=== PATIENT | female | born 1970 | race Caucasian/White ===

== ENCOUNTER 2020-11-24 12:53 | Emergency (ER) | payer OTHER, MEDICARE, SELFPAY | END 2020-11-24 15:52 | disposition left against medical advice (07) | LOC: HO.ED 14:17 | PROVIDERS: Emergency Provider Emergency Medicine | DX: R06.02 Shortness of breath (principal) ==

== ENCOUNTER 2022-12-09 09:33 | Outpatient (AMB) | payer OTHER, SELFPAY ==
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
[2022-12-09 09:55] VITALS: BP 142/96; PULSE 89; RESP 18; O2SAT 97; BMI 26.2
== END 2022-12-09 10:07 | disposition home or self-care (01) ==
PROVIDERS: Visit Provider Registered Nurse Emergency
DX: M47.816 Spondylosis without myelopathy or radiculopathy, lumbar region (principal); M54.50 Low back pain, unspecified; M53.3 Sacrococcygeal disorders, not elsewhere classified
CPT/HCPCS: 99204

== ENCOUNTER → 2022-12-09 09:33 | Outpatient (BNVA) | payer OTHER, SELFPAY | PROVIDERS: Visit Provider Registered Nurse Emergency | DX: M53.3 Sacrococcygeal disorders, not elsewhere classified (principal); M47.816 Spondylosis without myelopathy or radiculopathy, lumbar region; M54.50 Low back pain, unspecified | CPT/HCPCS: 99202 ==

== ENCOUNTER 2023-07-18 00:10 | Emergency (ER) | payer OTHER, SELFPAY ==
--- NOTE | ~2023-07-18 | XR_ITS ---
EXAMINATION: XR ANKLE, LEFT CLINICAL INFORMATION: Pain. COMPARISON: None available. TECHNIQUE: AP, lateral, and mortise views of the left ankle. FINDINGS: No fracture. Alignment is anatomic. No erosions. Joint spaces are maintained. Soft tissues are normal. XR/XR ankle LT min 3V IMPRESSION: No significant abnormality identified.
--- NOTE | ~2023-07-18 | XR_ITS ---
EXAMINATION: XR KNEE, LEFT CLINICAL INFORMATION: Pain. COMPARISON: None available. TECHNIQUE: Four views of the left knee. FINDINGS: No fracture or joint effusion. Alignment is anatomic. Joint spaces are maintained. No abnormal soft tissue calcification. XR/XR knee LT 4V IMPRESSION: No significant abnormality identified.
[2023-07-18 00:22] VITALS: BP 129/87; PULSE 94; RESP 18; TEMP 37.4; O2SAT 97; BMI 25.2
[2023-07-18 01:58] VITALS: BP 116/82; PULSE 97; RESP 16; TEMP 37; O2SAT 97
[2023-07-18 02:24] LABS: Appearance Urine Clear; Color Urine Yellow; Glucose Urine UA Negative (Negative); Leukocyte Esterase Urine Negative (Negative); Nitrite Urine Negative (Negative); PH 5.5 (5.0-9.0); Urine Blood Negative (Negative); Urine Ketones Negative (Negative); Urine Protein Negative (Neg-Trace)
[2023-07-18 02:29] LABS: Bacteria Urine None Seen (None Seen); Hyaline Casts Urine 0-2 /LPF (0-2); RBC Urine 0-2 /HPF (0-2); Squamous Epithelial Cell Urine 0-2 /HPF (0-2); WBC Urine 0-5 /HPF (0-5)
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
[2023-07-18 03:57] VITALS: BP 106/57; PULSE 86; RESP 14; TEMP 36.9; O2SAT 97
[2023-07-18] MEDS: cephALEXin 500 MG CAPSULE PO (04:05)
[2023-07-18] MEDS: Doxycycline Monohydrate 100 MG CAPSULE PO (04:05)
[2023-07-18 04:11] VITALS: BP 106/57; PULSE 86; RESP 14; TEMP 36.9; O2SAT 97
== END 2023-07-18 04:12 | disposition home or self-care (01) ==
PROVIDERS: Emergency Provider Student in an Organized Health Care Education/Training Program; PCP Nurse Practitioner Family
DX: L08.9 Local infection of the skin and subcutaneous tissue, unspecified (principal); M25.562 Pain in left knee; M25.572 Pain in left ankle and joints of left foot; Z79.899 Other long term (current) drug therapy
CPT/HCPCS: 73564; 73610; 81001; 99283; 99284

== ENCOUNTER 2024-02-02 10:19 | Outpatient (AMB) | payer OTHER, SELFPAY ==
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
[2024-02-02 12:26] VITALS: BP 150/100; PULSE 80; TEMP 36.8; O2SAT 98; BMI 23.7
== END 2024-02-02 13:06 | disposition home or self-care (01) ==
PROVIDERS: PCP Nurse Practitioner Family; Visit Provider Nurse Practitioner Family
DX: S69.91XA Unspecified injury of right wrist, hand and finger(s), initial encounter (principal); S61.431A Puncture wound without foreign body of right hand, initial encounter; W46.0XXA Contact with hypodermic needle, initial encounter

== ENCOUNTER → 2024-02-02 10:19 | Outpatient (BNVA) | payer OTHER, SELFPAY | PROVIDERS: PCP Nurse Practitioner Family; Visit Provider Nurse Practitioner Family | DX: S69.91XD Unspecified injury of right wrist, hand and finger(s), subsequent encounter (principal); W46.0XXD Contact with hypodermic needle, subsequent encounter | CPT/HCPCS: 99212 ==

== ENCOUNTER 2024-02-02 13:18 | Inpatient (IN) | payer OTHER, SELFPAY ==
--- NOTE | ~2024-02-02 | XR_ITS ---
EXAMINATION: XR HAND/WRIST, RIGHT CLINICAL INFORMATION: pain, injury ; fall. COMPARISON: None available. TECHNIQUE: PA, lateral, oblique, and scaphoid views of the right hand and wrist. FINDINGS: The bones and soft tissues are normal. No fracture. Alignment is anatomic. Joint spaces are maintained. No erosions or soft tissue calcifications. XR/XR hand wrist RT IMPRESSION: Normal radiographs of the hand and wrist. Electronically signed by: Sid Chapman MD 02/02/2024 02:26 PM [facility]
--- NOTE | 2024-02-02 13:32 | ED_ITS ---
HPI - General Adult General Chief complaint: General Medical Stated complaint: Needle stick, swelling R hand Time Seen by Provider: 02/02/24 17:46 History of Present Illness ED Provider: Jose ADAMES narrative: The patient is a 53-year-old woman who says that yesterday she was helping a friend who was an IV drug user cleaned himself up. She did not realize there was an uncapped needle on him. She was accidentally stuck in her right palm by the needle. Since then she has developed redness and swelling to the hand and has also developed redness streaking up her right arm to her armpit. She does not know if she has had a fever. Related Data Home Medications ?Medication ?Instructions ?Recorded ?Confirmed albuterol sulfate 90 mcg/actuation inhalation 12/07/22 aerosol inhaler duloxetine 60 mg capsule,delayed mg PO 12/07/22 release fluticasone propionate 220 2 puff inhalation BID 12/07/22 mcg/actuation HFA aerosol inhaler (Flovent HFA) fluticasone propionate 50 spray intranasal 12/07/22 mcg/actuation nasal spray,suspension gabapentin 300 mg capsule mg PO 12/07/22 loratadine 10 mg tablet 10 mg PO DAILY 12/07/22 lorazepam 2 mg tablet mg PO BID 12/07/22 methylphenidate HCl 10 mg tablet 10 mg PO BID 12/07/22 methylphenidate HCl 20 mg tablet 20 mg PO TID 12/07/22 montelukast 10 mg tablet 10 mg PO DAILY 12/07/22 omeprazole 20 mg capsule,delayed 20 mg PO BID 12/07/22 release risperidone 1 mg tablet 1 mg PO BEDTIME 12/07/22 trazodone 50 mg tablet 50 - 150 mg PO BEDTIME PRN 12/07/22 Previous Rx's ?Medication ?Instructions ?Recorded lidocaine 5 % topical patch 1 patch topical DAILY #30 ea 12/09/22 multivitamin 1 tab PO DAILY #30 tabs 12/09/22 doxycycline hyclate 100 mg capsule 100 mg PO BID 7 days #14 caps 07/18/23 Allergies Allergy/AdvReac Type Severity Reaction Status Date / Time hydromorphone [From DILAUDID] Allergy Severe UNKNOWN Verified 02/02/24 13:38 Sulfa (Sulfonamide Allergy Severe ANAPHYLAXIS Verified 02/02/24 13:38 Antibiotics) [SULFA (SULFONAMIDE ANTIBIOTICS)] gluten Allergy Unknown Verified 02/02/24 13:38 inverted sugar Allergy Vomiting Verified 02/02/24 13:38 lactose Allergy Unknown Verified 02/02/24 13:38 sulfa Allergy Unknown anaphylaxis Uncoded 02/02/24 13:38 Review of Systems 2 Review of Systems: Yes all other systems are reviewed and are negative [facility] Past Medical History Medical History Chronic constipation Urinary incontinence Raynaud disease PTSD (post-traumatic stress disorder) Primary hemochromatosis Polypharmacy Migraine Major depression Lactose intolerance Insomnia Gastro-esophageal reflux Fibromyalgia Elevated blood pressure reading Chronic pain syndrome Chronic diarrhea Cerebellar degeneration Asthma Anxiety disorder Anemia Allergic rhinitis Surgical History S/P gastric bypass Social History Social History Smoked in Last 30 Days: Yes Use of substances other than those prescribed or required for medical reasons: No Advance Directives: No Advance Directives Information Provided: No Do you have a plan to hurt others: No Plan Patient : No Physical Exam ED Vital Signs: Vital Signs - 24 hr 02/02/24 13:36 Temperature 98.4 F Pulse Rate 79 Respiratory Rate 19 Blood Pressure 136/64 Pulse Oximetry 98 Oxygen Delivery Method Room Air BMI result Body Mass Index 23.6 Const Other: The patient is awake, alert, pleasant, cooperative. The patient does not appear acutely toxic. [facility] Head: Yes normal to inspection Face and sinus: Yes normal facial exam Mouth: Normal oral and palatal mucosa present and moist mucous membranes Eyes General: appearance normal, both eyes and all related structures Neck Neck: Yes full ROM Resp Effort & Inspection: normal respiratory effort Auscultation: clear to auscultation bilaterally Cardio Rate: regular rate Rhythm: regular rhythm Heart sounds: S1 normal heart sound present and S2 normal heart sound present GI Other: Abdomen is soft and nontender Skin Other: The patient has swelling and erythema to the right hand mostly at the palm. The hand is swollen. There is lymphangitis on the volar aspect of the right forearm that extends up to the upper arm and as far as the axilla. Neuro Other: The patient is awake with a normal mental status. Cranial nerves are intact. She moves her extremities normally and appropriately. She is neurologically intact. Extrem Other: The patient has swelling and erythema to the right hand with lymphangitis that extends up the volar forearm and the medial aspect of the upper arm to the axilla. She is able to move all the joints of the upper extremity without difficulty. No evidence of any focal swelling or fluctuance or acute joint or tendon problem. Course Course Course Narrative: RME performed by Mitra Lee PA-C. Patient is a 53 year old assigned female at presenting to the emergency department with right hand and wrist pain. Patient states that she slipped and fell on the right hand / wrist and got stuck by a dirty needle on the right palm. Patient states that she is helping someone with IVDU and got stuck on the right palm. Detailed physical exam and review of systems are deferred to the emergency room clinician. Labs and imaging ordered. Patient placed back in the waiting room pending room availability and results. Medications Administered Generic Name Dose Route Start Last Admin Trade Name Freq PRN Reason Stop Dose Admin Vancomycin HCl 1,500 mg/ 500 mls @ 333.333 mls/hr 02/02/24 17:54 02/02/24 18:58 Sodium Chloride IV 02/02/24 19:23 333.33 mls/hr ONCE ONE Administration Discontinued Medications Generic Name Dose Route Start Last Admin Trade Name Freq PRN Reason Stop Dose Admin Lorazepam 1 mg 02/02/24 18:01 02/02/24 18:58 Lorazepam 1 Mg Tablet PO 02/02/24 18:02 1 mg ONCE ONE Administration Medical Decision Making Medical Decision Making [facility] Narrative: The patient is a 53-year-old female who has what seems to be a right hand cellulitis with associated lymphangitis extending from the palm to the right axilla. [place] [address] and also an elevated CRP of 19. Given her cellulitis and lymphangitis and significantly elevated inflammatory markers I think hospitalization would be reasonable. Blood cultures were drawn. Her lactate was normal. She is started on vancomycin IV. She will be admitted to the hospitalist service. Lab Data 02/02/24 15:02 02/02/24 15:02 Labs: Lab Results 02/02/24 02/02/24 Range/Units 15:02 18:26 WBC 16.3 H (4.8-10.8) X10*3/uL RBC 4.29 (4.20-5.50) X10*6/uL Hgb 13.1 (12.0-16.0) g/dl Hct 39.4 (37.0-47.0) % MCV 91.8 (80.0-98.0) fL MCH 30.5 (27.0-33.0) pg MCHC 33.2 (31.0-35.0) g/dl RDW 12.8 (11.0-16.0) % Plt Count 302 (160-400) X10*3/uL MPV 10.9 (9.4-12.3) fL Immature Gran % (Auto) 0.5 H (0.0-0.4) % Neut % (Auto) 78.5 H (45-73) % Lymph % (Auto) 14.0 L (20-40) % Aiken % (Auto) 6.2 (2-11) % Eos % (Auto) 0.4 (0-4) % Baso % (Auto) 0.4 (0-2) % Lymph # (Auto) 2.3 (1.2-4.9) X10*3/uL Aiken # (Auto) 1.0 (0.1-1.2) X10*3/uL Eos # (Auto) 0.1 (0.0-0.4) X10*3/uL Baso # (Auto) 0.1 (0.0-0.2) X10*3/uL Abs Immat Gran (auto) 0.08 H (0.00-0.03) X10*3/uL Absolute Neuts (auto) 12.8 H (2.0-8.3) x10*3/uL Absolute Nucleated RBC 0.000 (0.0-0.012) X10*3/uL Nucleated RBC % (auto) 0.0 (0.0-0.2) /100WBC ESR 17 (0-20) MM/HR Sodium 140 (135-145) mmol/L Potassium 3.3 (3.3-5.1) mmol/L Chloride 100 (96-108) mmol/L Carbon Dioxide 27 (22-29) mmol/L Anion Gap 16 (12-20) BUN 11 (9-16) mg/dL Creatinine 0.61 (0.5-1.4) mg/dL Estim Creat Clear Calc 85.3 Estimated GFR > 60 Random Glucose 102 (60-115) mg/dL Lactic Acid 0.9 (0.5-2.0) mmol/L Calcium 9.3 (8.4-10.2) mg/dL Magnesium 2.1 (1.6-2.6) mg/dL Total Bilirubin 0.3 (0.0-1.0) mg/dL AST 23 (5-31) U/L ALT 22 (0-31) U/L Alkaline Phosphatase 70 (39-117) U/L C-Reactive Protein 19.05 H (< or = 0.50) mg/dL Total Protein 7.2 (6.5-8.0) g/dL Albumin 4.2 (3.5-5.0) g/dL Discharge Plan Discharge Clinical Impression: Cellulitis of right hand Patient Disposition: Admitted As Inpatient Interventions: Admission Worksheet (ED) Last Done: 02/02/24 18:55
[2024-02-02 13:36] VITALS: BP 136/64; PULSE 79; RESP 19; TEMP 36.9; O2SAT 98; BMI 23.6
[2024-02-02 15:16] LABS: MANUAL DIFF FLAG NO
[2024-02-02 15:17] LABS: Basophils Absolute Auto 0.1 X10*3/uL (0.0-0.2); Basophils Percent Auto 0.4 % (0-2); Eosinophils Absolute Auto 0.1 X10*3/uL (0.0-0.4); Eosinophils Percent Auto 0.4 % (0-4); Hematocrit 39.4 % (37.0-47.0); Hemoglobin 13.1 g/dl (12.0-16.0); Imm Gran Abs Auto 0.08 X10*3/uL (0.00-0.03); Imm Gran Pct Auto 0.5 % (0.0-0.4); Lymphocytes Absolute Auto 2.3 X10*3/uL (1.2-4.9); Mean Corpuscular HGB Conc 33.2 g/dl (31.0-35.0); Mean Corpuscular Hemoglobin 30.5 pg (27.0-33.0); Mean Corpuscular Volume 91.8 fL (80.0-98.0); Mean Platelet Volume 10.9 fL (9.4-12.3); Monocytes Percent Auto 6.2 % (2-11); Neutrophils Absolute Auto 12.8 x10*3/uL (2.0-8.3); Neutrophils Percent Auto 78.5 % (45-73); Platelet Count 302 X10*3/uL (160-400); Red Blood Count 4.29 X10*6/uL (4.20-5.50); Red Cell Distribution Width 12.8 % (11.0-16.0); White Blood Count 16.3 X10*3/uL (4.8-10.8)
[2024-02-02 15:54] LABS: Erythrocyte Sedimentation Rate 17 MM/HR (0-20)
[2024-02-02 16:12] LABS: Alanine Aminotransferase 22 U/L (0-31); Albumin Level 4.2 g/dL (3.5-5.0); Alkaline Phosphatase 70 U/L (39-117); Anion Gap 16 (12-20); Aspartate Amino Transferase 23 U/L (5-31); Bilirubin Total 0.3 mg/dL (0.0-1.0); Blood Urea Nitrogen 11 mg/dL (9-16); C Reactive Protein 19.05 mg/dL (< or = 0.50); Calcium 9.3 mg/dL (8.4-10.2); Carbon Dioxide 27 mmol/L (22-29); Chloride 100 mmol/L (96-108); Creatinine Clr Calc Pharmacy 85.3; Estimated Glomerular Filt Rate > 60; Glucose Random 102 mg/dL (60-115); Magnesium 2.1 mg/dL (1.6-2.6); Potassium 3.3 mmol/L (3.3-5.1); Sodium 140 mmol/L (135-145); Total Protein 7.2 g/dL (6.5-8.0)
--- NOTE | 2024-02-02 18:46 | P.HPHOSP_ITS ---
History of Present Illness Date of Service: 02/02/24 Attending physician on admission: Dave Hernandez Chief Complaint: arm /maciel cellulitis HPI: 53 y/o F pmhx hx of asthma (mild intermittent) , anxiety, gastric bypass came with needle stick yetserday .her friend is kelly, She was accidentally stuck in her right palm by the needle. Since then she has developed redness and swelling to the hand and has also developed redness streaking up her right arm to her armpit. She does not know if she has had a fever. she also report hx of mrsa bacteremia requiring iv vanco was in [facility]. Denies any new complaint of chest pain or shortness of breath or abdominal pain or fever or chills or nausea or vomiting or cough Denies any weakness or numbness. lab ,imaging reviewed: wbc 16.3 cmp fine crp 19.05 esr:17 lactic acid 0.9 blood culture pending XR/XR hand wrist RT IMPRESSION: Normal radiographs of the hand and wrist. in Ed -received iv vanco. requested admission Review of Systems 2 Review of Systems: Yes all other systems are reviewed and are negative [facility] Medical History Chronic constipation Urinary incontinence Raynaud disease PTSD (post-traumatic stress disorder) Primary hemochromatosis Polypharmacy Migraine Major depression Lactose intolerance Insomnia Gastro-esophageal reflux Fibromyalgia Elevated blood pressure reading Chronic pain syndrome Chronic diarrhea Cerebellar degeneration Asthma Anxiety disorder Anemia Allergic rhinitis Surgical History S/P gastric bypass Meds Allergies Allergy/AdvReac Type Severity Reaction Status Date / Time hydromorphone [From DILAUDID] Allergy Severe UNKNOWN Verified 02/02/24 13:38 Sulfa (Sulfonamide Allergy Severe ANAPHYLAXIS Verified 02/02/24 13:38 Antibiotics) [SULFA (SULFONAMIDE ANTIBIOTICS)] gluten Allergy Unknown Verified 02/02/24 13:38 inverted sugar Allergy Vomiting Verified 02/02/24 13:38 lactose Allergy Unknown Verified 02/02/24 13:38 sulfa Allergy Unknown anaphylaxis Uncoded 02/02/24 13:38 Active Medications: Current Medications Acetaminophen (Acetaminophen 325 Mg Tablet) 650 mg PO Q6H PRN PRN Reason: Pain, Mild 1-3,fever,headache Calcium Carbonate (Calcium Carbonate 750 Mg Tab.Chew) 750 mg PO Q4H PRN PRN Reason: Heartburn Enoxaparin Sodium (Enoxaparin Sodium 40 Mg/0.4 Ml Syringe) 40 mg SUBCUT Q24H [facility] Vancomycin HCl 1,500 mg/ (Sodium Chloride) 500 mls @ 333.333 mls/hr IV ONCE ONE Stop: 02/02/24 19:23 Magnesium Hydroxide (Milk Of Magnesia 30 Ml Oral.Susp) 30 ml PO DAILY PRN PRN Reason: Constipation Melatonin (Melatonin 3 Mg Tablet) 6 mg PO BEDTIME PRN PRN Reason: Insomnia Pharmacy Consult (Consult Rx Vancomycin Dosing) 1 each MISCELLANE DAILY PRN PRN Reason: Consult order Sodium Chloride (0.9 % Sodium Chloride Flush 3 Ml Syringe) 3 [facility] Home Medications ?Medication ?Instructions ?Recorded ?Confirmed ?Last Taken ?Type albuterol sulfate 90 mcg/actuation inhalation 12/07/22 Unknown History aerosol inhaler duloxetine 60 mg capsule,delayed mg PO 12/07/22 Unknown History release fluticasone propionate 220 2 puff inhalation BID 12/07/22 Unknown History mcg/actuation HFA aerosol inhaler (Flovent HFA) fluticasone propionate 50 spray intranasal 12/07/22 Unknown History mcg/actuation nasal spray,suspension gabapentin 300 mg capsule mg PO 12/07/22 Unknown History loratadine 10 mg tablet 10 mg PO DAILY 12/07/22 Unknown History lorazepam 2 mg tablet mg PO BID 12/07/22 Unknown History methylphenidate HCl 10 mg tablet 10 mg PO BID 12/07/22 Unknown History methylphenidate HCl 20 mg tablet 20 mg PO TID 12/07/22 Unknown History montelukast 10 mg tablet 10 mg PO DAILY 12/07/22 Unknown History omeprazole 20 mg capsule,delayed 20 mg PO BID 12/07/22 Unknown History release risperidone 1 mg tablet 1 mg PO BEDTIME 12/07/22 Unknown History trazodone 50 mg tablet 50 - 150 mg PO BEDTIME PRN 12/07/22 Unknown History Physical Exam 2 Vital Signs and Narrative: Vital Signs: Last Vital Signs Temp 98.4 F 02/02/24 13:36 Pulse 79 02/02/24 13:36 Resp 19 02/02/24 13:36 BP 136/64 02/02/24 13:36 Pulse Ox 98 02/02/24 13:36 O2 Del Method Room Air 02/02/24 13:36 BMI result Body Mass Index 23.6 Appearance: Alert.? Oriented X3.? Eyes: Pupils equal, round and reactive to light.? Sclera nonicteric.? ENT: Pharynx normal.? Moist mucous membranes. cvs: rrr, [id number] , no murmur res: clear to auscultation ,no rhonchii or wheezing abd: no rebound or guarding ,nt, bs present. ext pulses present , no cyanosis . right hand and forearm erythema and some pain neuro: axo3 , nonfocal. Results Labs 02/02/24 15:02 02/02/24 15:02 Labs: Laboratory Results - last 24 hr 02/02/24 15:02 MCV 91.8 MCH 30.5 MCHC 33.2 RDW 12.8 Plt Count 302 MPV 10.9 Immature Gran % (Auto) 0.5 H Neut % (Auto) 78.5 H Lymph % (Auto) 14.0 L Nobles % (Auto) 6.2 Eos % (Auto) 0.4 Baso % (Auto) 0.4 Lymph # (Auto) 2.3 Nobles # (Auto) 1.0 Eos # (Auto) 0.1 Baso # (Auto) 0.1 Abs Immat Gran (auto) 0.08 H Absolute Neuts (auto) 12.8 H Absolute Nucleated RBC 0.000 Nucleated RBC % (auto) 0.0 ESR 17 Anion Gap 16 Estim Creat Clear Calc 85.3 Estimated GFR > 60 Random Glucose 102 Calcium 9.3 Magnesium 2.1 Total Bilirubin 0.3 AST 23 ALT 22 Alkaline Phosphatase 70 C-Reactive Protein 19.05 H Total Protein 7.2 Albumin 4.2 Imaging Radiologist's Impressions: Impressions Hand/Wrist X-Ray 02/02/24 13:33 IMPRESSION: Normal radiographs of the hand and wrist. Electronically signed by: Sid Chapman MD 02/02/2024 02:26 PM [facility] Assessment and Plan (1) Cellulitis of right hand: Status: Acute Plan 53 y/o F pmhx hx of asthma (mild intermittent) , says also has MVP,anxiety, gastric bypass came with needle stick yesterday .her friend is ivdu, She was accidentally stuck in her right palm by the needle. Right arm cellulitis ? History of MRSA leucocytosis ,elevated esr Normal lactic acid, blood cultures sent Does not meet sepsis. Continue IV vancomycin asthma (mild intermittent) -continue home meds once reconcilled. anxiety/major depression: continue home meds once reconcilled dvt prophylax: s/c lovenox. Patient would benefit from 2 midnight stay considering significant arm cellulitis and and cellulitis with needlestick-need IV antibiotics blood cultures pending, further deterioration need id eval and surgery eval. Above management discussed with the patient in detail length she understand agreement plan, time 70 min, patient is full code. Quality Stroke Does the patient have a stroke diagnosis?: No VTE Prior VTE?: No VTE Risk Level:: Medical - moderate - high VTE Device Contraindication: N/A - Device Ordered VTE Drug Contraindication: N/A - Med Ordered
[2024-02-02 18:47] LABS: Lactic Acid 0.9 mmol/L (0.5-2.0)
[2024-02-02] MEDS: LORazepam 1 MG TABLET PO (18:58)
[2024-02-02] MEDS: vancomycin HCL 1,500 MG in 0.9 % Sodium Chloride 500 ML 333.33 MG IV (18:58)
[2024-02-02 18:59] VITALS: BP 149/81; PULSE 69; RESP 18; TEMP 36.5; O2SAT 100
--- NOTE | 2024-02-02 19:01 | PC.NURSE ---
reddness noted right hand and running up arm to AC. pt is aware of plan of care.
[2024-02-02 20:25] VITALS: BP 122/59; PULSE 71; RESP 20; TEMP 36.9; O2SAT 100
--- NOTE | 2024-02-02 21:02 | PHA.MEDREC ---
Pharmacy Consult ? Medication Reconciliation Pharmacy has completed the medication reconciliation. Spoke to patient at bedside, she was able to confirm all her medications. She states she takes Duloxetine 60mg BID, Gabapentin 300mg 8x daily, Lorazepam 1mg 8x daily, Acetaminophen 500mg 8x daily, as well as OTC Folic Acid, B-12, Vitamin B complex, Vitamin D3, Calcium Citrate, Miralax, and Simethicone BID. She has Chocolate Ensure with no sugar and gluten free.
--- NOTE | 2024-02-02 21:33 | PC.NURSE ---
report given to DONTA Parr in overflow
[2024-02-02] MEDS: Enoxaparin Sodium 40 MG/0.4 ML SYRINGE SUBCUT (21:37)
--- NOTE | 2024-02-02 22:00 | PC.NURSE ---
Late entry: PT found to be drowsy and nodding off and difficult to wake. PT woke with response to touch and louder voice. PT noted she was drowsy because she was sleepy and in pain. PT inquired about the status of her Ativan order to which t/w noted she would follow up with provider and pharmacy re: med rec. PT then asked T/W for a big jug of water so she can take her Tylenol. PT did not request Tylenol from t/w so t/w asked pt if she had medication on her she was planning to take. PT replied yes. T/W noted to pt that t/w could medicate her for pain and educated Pt on policies regarding home medications and pt provided pt with medications in her bag, but was notably defensive and agitated. Controlled meds counted with Rn, Linda Brambila appropriate forms filled out and brought to pharmacy. PT provided with envelope slips for two bag of medications.
[2024-02-02 22:03] LABS: Glucose, Whole Blood 137 mg/dL (60-115)
--- NOTE | 2024-02-02 22:41 | PC.NURSE ---
Report taken from Anamraia LONGO, pt moved to overflow rm 5 assumed care of pt at this time. Pt A&Ox3 skin pwd respirations even unlabored. Denies pain. VSS. Call rogers within reach, will continue to monitor.
[2024-02-02 22:53] VITALS: BP 148/75; PULSE 69; RESP 18; TEMP 36.6; O2SAT 99
[2024-02-03] MEDS: 0.9 % Sodium Chloride Flush 3 ML SYRINGE IVFLUSH ×3 (01:02→16:40)
[2024-02-03] MEDS: DULoxetine HCl 60 MG CAPSULE.DR PO ×2 (03:36→22:52)
[2024-02-03] MEDS: Gabapentin 300 MG CAPSULE PO ×7 (03:37→20:12)
[2024-02-03] MEDS: Montelukast Sodium 10 MG TABLET PO (03:37)
[2024-02-03] MEDS: LORazepam 1 MG TABLET PO ×7 (03:37→23:59)
[2024-02-03] MEDS: Loratadine 10 MG TABLET PO (03:38)
[2024-02-03] MEDS: polyethylene glycoL 3350 17 GM POWD.PACK PO (04:34)
--- NOTE | 2024-02-03 04:48 | PC.NURSE ---
Assumed care of patient at 2300- patient requesting scheduled HS medications. Hospitalist notified and continued home meds. Permission given to give am meds early. Patient A&Ox4 , will continue to monitor.
[2024-02-03 05:24] LABS: Hematocrit 38.5 % (37.0-47.0); Hemoglobin 12.3 g/dl (12.0-16.0); Mean Corpuscular HGB Conc 31.9 g/dl (31.0-35.0); Mean Corpuscular Hemoglobin 29.9 pg (27.0-33.0); Mean Corpuscular Volume 93.4 fL (80.0-98.0); Mean Platelet Volume 11.5 fL (9.4-12.3); Platelet Count 305 X10*3/uL (160-400); Red Blood Count 4.12 X10*6/uL (4.20-5.50); Red Cell Distribution Width 12.8 % (11.0-16.0); White Blood Count 11.2 X10*3/uL (4.8-10.8)
--- NOTE | 2024-02-03 05:45 | PC.NURSE ---
pt brought back to main ed from overflow. Resting comfortably in bed, respiration even and unlabored. plan of care ongoing
[2024-02-03 05:47] LABS: Anion Gap 11 (12-20); Blood Urea Nitrogen 11 mg/dL (9-16); Calcium 8.9 mg/dL (8.4-10.2); Carbon Dioxide 28 mmol/L (22-29); Chloride 104 mmol/L (96-108); Creatinine Clr Calc Pharmacy 71.2; Estimated Glomerular Filt Rate > 60; Glucose Random 159 mg/dL (60-115); Potassium 3.9 mmol/L (3.3-5.1); Sodium 139 mmol/L (135-145)
[2024-02-03] MEDS: vancomycin HCL 1,000 MG in 0.9 % Sodium Chloride 250 ML 270 MG IV (06:31)
[2024-02-03 06:41] VITALS: BP 105/56; PULSE 58; RESP 18; TEMP 36.3; O2SAT 98
[2024-02-03] MEDS: Simethicone 80 MG TAB.CHEW 160 MG PO ×2 (08:19→20:13)
[2024-02-03] MEDS: Calcium Oyster Shell Elemental 500 MG TABLET PO (08:20)
[2024-02-03] MEDS: Multivitamin TABLET 1 TAB PO (08:20)
[2024-02-03] MEDS: Methylphenidate HCl 10 MG TABLET 20 MG PO ×4 (08:20→20:12)
[2024-02-03] MEDS: Cholecalciferol (Vitamin D3) 25 MCG TABLET 50 MCG PO (08:21)
[2024-02-03] MEDS: Cyanocobalamin (Vitamin B-12) 1,000 MCG TABLET 1000 MCG PO (08:21)
[2024-02-03] MEDS: Omeprazole 40 MG CAPSULE.DR PO ×2 (08:21→20:12)
[2024-02-03] MEDS: Folic Acid 1 MG TABLET PO (08:21)
[2024-02-03] MEDS: Lidocaine 4 % Patch ADH..PATCH 2 PATCH TRANSDERMA (08:22)
[2024-02-03 08:59] VITALS: BP 141/67; PULSE 87; RESP 18; TEMP 36.5; O2SAT 100
[2024-02-03] MEDS: Fluticasone Propionate 250 MCG BLST.W.DEV 2 PUFF INHALE (10:19)
[2024-02-03] MEDS: Fluticasone Propionate Nasal 16 GM SPRAY 1 SPRAY NOSTRIL-B (10:19)
[2024-02-03] MEDS: Acetaminophen 325 MG TABLET 650 MG PO ×2 (11:47→18:17)
--- NOTE | 2024-02-03 14:09 | HO.PM.IMPN ---
Subjective Subjective Date of Service: 02/03/24 Interval History: arm cellulitis Review of Systems somewhat improving still has hand and arm erythema and some swellin no fever Physical Exam Vital Signs: Vital Signs: Last Vital Signs Temp 97.7 F 02/03/24 08:59 Pulse 87 02/03/24 08:59 Resp 18 02/03/24 08:59 BP 141/67 H 02/03/24 08:59 Pulse Ox 100 02/03/24 08:59 O2 Del Method Room Air 02/03/24 08:59 BMI result Body Mass Index 23.6 Appearance: Alert.? Oriented X3.? cvs: rrr, [id number]. res: clear to auscultation ,no rhonchii or wheezing abd: no rebound or guarding ,nt, bs present. ext pulses present , no cyanosis . right hand and forearm erythema and some pain neuro: axo3 , nonfocal. Objective Data Active Medications Acetaminophen (Acetaminophen 325 Mg Tablet) 650 mg PO Q6H PRN PRN Reason: Pain, Mild 1-3,fever,headache Last Admin: 02/03/24 11:47 Dose: 650 mg Documented By: ELMIRA Albuterol Sulfate (Albuterol Sulfate 90 Mcg 8 Gm Inhaler) 1 puff INHALE Q6H PRN PRN Reason: Shortness Of Breath Or Wheezing Calcium Carbonate (Calcium Carbonate 750 Mg Tab.Chew) 750 mg PO Q4H PRN PRN Reason: Heartburn Calcium Carbonate (Calcium Oyster Shell Elemental 500 Mg Tablet) 500 mg PO DAILY [facility] Last Admin: 02/03/24 08:20 Dose: 500 mg Documented By: GABRIELA Cyanocobalamin (Cyanocobalamin (Vitamin B-12) 1,000 Mcg Tablet) 1,000 mcg PO DAILY [facility] Last Admin: 02/03/24 08:21 Dose: 1,000 mcg Documented By: GABRIELA Duloxetine HCl (Duloxetine Hcl 60 Mg Ahmet.) 60 mg PO BID [facility] Last Admin: 02/03/24 03:36 Dose: 60 mg Documented By: MELISSA Comments: early dose per provider Enoxaparin Sodium (Enoxaparin Sodium 40 Mg/0.4 Ml Syringe) 40 mg SUBCUT Q24H [facility] Last Admin: 02/02/24 21:37 Dose: 40 mg Documented By: HO.MONTEIR Fluticasone Propionate (Fluticasone Propionate 250 Mcg Blst.W.Dev) 2 puff INHALE DAILY [facility] Last Admin: 02/03/24 10:19 Dose: 2 puff Documented By: ELMIRA Fluticasone Propionate (Fluticasone Propionate Nasal 16 Gm [place]) 1 spray NOSTRIL-B DAILY [facility] Last Admin: 02/03/24 10:19 Dose: 1 spray Documented By: ELMIRA Folic Acid (Folic Acid 1 Mg Tablet) 1 mg PO DAILY [facility] Last Admin: 02/03/24 08:21 Dose: 1 mg Documented By: GABRIELA Gabapentin (Gabapentin 300 Mg Capsule) 300 mg PO Q3H [facility] Last Admin: 02/03/24 11:47 Dose: 300 mg Documented By: ELMIRA Vancomycin HCl 1,000 mg/ (Sodium Chloride) 270 mls @ 270 mls/hr IV Q12H [facility] Last Infusion: 02/03/24 07:45 Dose: Infused Documented By: GABRIELA Lidocaine (Lidocaine 4 % Patch Adh..Patch) 2 patch TRANSDERMA DAILY [facility] Last Admin: 02/03/24 08:22 Dose: 2 patch Documented By: GABRIELA Loratadine (Loratadine 10 Mg Tablet) 10 mg PO DAILY [facility] Last Admin: 02/03/24 03:38 Dose: 10 mg Documented By: MELISSA Comments: early dose per provider Lorazepam (Lorazepam 1 Mg Tablet) 1 mg PO Q3H [facility] Last Admin: 02/03/24 11:47 Dose: 1 mg Documented By: ELMIRA Magnesium Hydroxide (Milk Of Magnesia 30 Ml Oral.Susp) 30 ml PO DAILY PRN PRN Reason: Constipation Melatonin (Melatonin 3 Mg Tablet) 6 mg PO BEDTIME PRN PRN Reason: Insomnia Methylphenidate HCl (Methylphenidate Hcl 10 Mg Tablet) 20 mg PO QID [facility] Last Admin: 02/03/24 13:18 Dose: 20 mg Documented By: ELMIRA Montelukast Sodium (Montelukast Sodium 10 Mg Tablet) 10 mg PO DAILY [facility] Last Admin: 02/03/24 03:37 Dose: 10 mg Documented By: MELISSA Comments: early dose per provider Multivitamins/Vitamin C (Multivitamin Tablet) 1 tab PO DAILY [facility] Last Admin: 02/03/24 08:20 Dose: 1 tab Documented By: GABRIELA Omeprazole (Omeprazole 40 Mg Capsule.Dr) 40 mg PO BID [facility] Last Admin: 02/03/24 08:21 Dose: 40 mg Documented By: GABRIELA Pharmacy Consult (Consult Rx Vancomycin Dosing) 1 each MISCELLANE DAILY PRN PRN Reason: Consult order Polyethylene Glycol (Polyethylene Glycol 3350 17 Gm Powd.Pack) 17 gm PO DAILY [facility] Last Admin: 02/03/24 04:34 Dose: 17 gm Documented By: MELISSA Comments: early dose per provider Risperidone (Risperidone 1 Mg Tablet) 1 mg PO BEDTIME PRN PRN Reason: Anxiety Simethicone (Simethicone 80 Mg Tab.Chew) 160 mg PO BID [facility] Last Admin: 02/03/24 08:19 Dose: 160 mg Documented By: GABRIELA Sodium Chloride (0.9 % Sodium Chloride Flush 3 Ml Syringe) 3 ml IVFLUSH QSHIFT [facility] Last Admin: 02/03/24 08:22 Dose: 3 ml Documented By: GABRIELA Vitamin D (Cholecalciferol (Vitamin D3) 25 Mcg Tablet) 50 mcg PO DAILY [facility] Last Admin: 02/03/24 08:21 Dose: 50 mcg Documented By: GABRIELA Labs 02/03/24 04:20 02/03/24 04:20 Labs: Laboratory Results - last 24 hr 02/02/24 02/02/24 02/02/24 15:02 18:26 21:57 MCV 91.8 MCH 30.5 MCHC 33.2 RDW 12.8 Plt Count 302 MPV 10.9 Immature Gran % (Auto) 0.5 H Neut % (Auto) 78.5 H Lymph % (Auto) 14.0 L [place] % (Auto) 6.2 Eos % (Auto) 0.4 Baso % (Auto) 0.4 Lymph # (Auto) 2.3 [place] # (Auto) 1.0 Eos # (Auto) 0.1 Baso # (Auto) 0.1 Abs Immat Gran (auto) 0.08 H Absolute Neuts (auto) 12.8 H Absolute Nucleated RBC 0.000 Nucleated RBC % (auto) 0.0 ESR 17 Anion Gap 16 Estim Creat Clear Calc 85.3 Estimated GFR > 60 POC Glucose 137 H Random Glucose 102 Lactic Acid 0.9 Calcium 9.3 Magnesium 2.1 Total Bilirubin 0.3 AST 23 ALT 22 Alkaline Phosphatase 70 C-Reactive Protein 19.05 H Total Protein 7.2 Albumin 4.2 02/03/24 04:20 MCV 93.4 MCH 29.9 MCHC 31.9 RDW 12.8 Plt Count 305 MPV 11.5 Immature Gran % (Auto) Neut % (Auto) Lymph % (Auto) [place] % (Auto) Eos % (Auto) Baso % (Auto) Lymph # (Auto) [place] # (Auto) Eos # (Auto) Baso # (Auto) Abs Immat Gran (auto) Absolute Neuts (auto) Absolute Nucleated RBC 0.000 Nucleated RBC % (auto) 0.0 ESR Anion Gap 11 L Estim Creat Clear Calc 71.2 Estimated GFR > 60 POC Glucose Random Glucose 159 H Lactic Acid Calcium 8.9 Magnesium Total Bilirubin AST ALT Alkaline Phosphatase C-Reactive Protein Total Protein Albumin Assessment and Plan (1) Cellulitis of right hand: Status: Acute Plan 53 y/o F pmhx hx of asthma (mild intermittent) , says also has MVP,anxiety, gastric bypass came with needle stick yesterday .her friend is kelly, She was accidentally stuck in her right palm by the needle. Right arm cellulitis has somewhat improving -still has significant hand and arm swelling,compartments are soft,has pulses. ? History of MRSA leucocytosis ,elevated esr Normal lactic acid, blood cultures sent Does not meet sepsis. Continue IV vancomycin asthma (mild intermittent) -continue home meds once reconcilled. anxiety/major depression: continue home meds once reconcilled dvt prophylax: s/c lovenox. ongoing need for stay considering significant arm cellulitis and and cellulitis with needlestick-need IV antibiotics blood cultures pending, further deterioration need id eval and surgery eval. Quality Stroke Does the patient have a stroke diagnosis?: No VTE Prior VTE?: No VTE Risk Level:: Medical - moderate - high VTE Device Contraindication: N/A - Device Ordered VTE Drug Contraindication: N/A - Med Ordered
[2024-02-03 15:23] VITALS: BP 138/94; PULSE 69; RESP 18; TEMP 36.2; O2SAT 100
[2024-02-03] MEDS: Docusate Sodium 100 MG CAPSULE PO ×2 (15:27→20:12)
--- NOTE | 2024-02-03 15:53 | MHC.CM.PN ---
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
[2024-02-03] MEDS: vancomycin HCL 1,500 MG in 0.9 % Sodium Chloride 500 ML 333.33 MG IV (18:17)
[2024-02-03 19:27] VITALS: BP 133/80; PULSE 68; RESP 18; TEMP 36.2; O2SAT 100
[2024-02-03] MEDS: Enoxaparin Sodium 40 MG/0.4 ML SYRINGE SUBCUT (20:12)
[2024-02-04] VITALS (7 sets, daily range): BP systolic 128–151; BP diastolic 71–95; PULSE 58–98; RESP 16–18; TEMP 36.4–37.1; O2SAT 98–100
[2024-02-04] MEDS: DULoxetine HCl 60 MG CAPSULE.DR PO
[2024-02-04] MEDS: 0.9 % Sodium Chloride Flush 3 ML SYRINGE IVFLUSH ×3 (00:07→16:13)
[2024-02-04] MEDS: Gabapentin 300 MG CAPSULE PO ×8 (03:09→20:09)
[2024-02-04] MEDS: LORazepam 1 MG TABLET PO ×7 (03:09→20:08)
[2024-02-04] MEDS: vancomycin HCL 1,500 MG in 0.9 % Sodium Chloride 500 ML 333.33 MG IV (06:27)
[2024-02-04] MEDS: Acetaminophen 325 MG TABLET 650 MG PO ×3 (06:48→16:08)
[2024-02-04] MEDS: Methylphenidate HCl 10 MG TABLET 20 MG PO ×5 (06:48→20:08)
--- NOTE | 2024-02-04 06:54 | PC.NURSE ---
Pt requested to take her Cymbalta later of the night, when med was offered pt claimed she takes to caps of the me rather than 1 cap, Dr. Galloway was made aware, Basia Hernandez came to talk to the pt, additional Cymbalta 20 mg cap ordered and given. Around 6am, pt was insisting that she takes her Ritalin as early as 5am, Soha Hernandez was made aware, med was rescheduled and Ritalin was given.
[2024-02-04] MEDS: Fluticasone Propionate 250 MCG BLST.W.DEV 2 PUFF INHALE (07:49)
[2024-02-04 08:35] LABS: Creatinine Clr Calc Pharmacy 77.6; Estimated Glomerular Filt Rate > 60
[2024-02-04] MEDS: Cyanocobalamin (Vitamin B-12) 1,000 MCG TABLET 1000 MCG PO (08:58)
[2024-02-04] MEDS: Montelukast Sodium 10 MG TABLET PO (08:58)
[2024-02-04] MEDS: Docusate Sodium 100 MG CAPSULE PO ×2 (08:59→20:09)
[2024-02-04] MEDS: Cholecalciferol (Vitamin D3) 25 MCG TABLET 50 MCG PO (08:59)
[2024-02-04] MEDS: Omeprazole 40 MG CAPSULE.DR PO ×2 (08:59→20:08)
[2024-02-04] MEDS: Calcium Oyster Shell Elemental 500 MG TABLET PO (08:59)
[2024-02-04] MEDS: Folic Acid 1 MG TABLET PO (08:59)
[2024-02-04] MEDS: Loratadine 10 MG TABLET PO (09:00)
[2024-02-04] MEDS: Lidocaine 4 % Patch ADH..PATCH 2 PATCH TRANSDERMA (09:00)
[2024-02-04] MEDS: Multivitamin TABLET 1 TAB PO (09:00)
[2024-02-04] MEDS: polyethylene glycoL 3350 17 GM POWD.PACK PO (09:00)
[2024-02-04] MEDS: Simethicone 80 MG TAB.CHEW 160 MG PO ×2 (09:00→20:09)
[2024-02-04] MEDS: Fluticasone Propionate Nasal 16 GM SPRAY 1 SPRAY NOSTRIL-B (09:24)
[2024-02-04 11:13] LABS: Amphetamine Screen Urine Not Detected (Not Detect); Barbiturates, Urine Not Detected (Not Detect); Benzodiazepines Screen Urine Not Detected (Not Detect); Buprenorphine Scr Not Detected (Not Detect); Cannabinoid Screen Urine POSITIVE (Not Detect); Cocaine Screen Urine POSITIVE (Not Detect); Fentanyl, urine Not Detected (Not Detect); Methadone Screen, Urine Not Detected (Not Detect); Opiate Screen Urine Not Detected (Not Detect); Oxycodone Screen Urine Not Detected (Not Detect); Phencyclidine Screen Urine Not Detected (Not Detect)
[2024-02-04 11:57] LABS: MRSA Nasal PCR NEGATIVE (Negative); SA Nasal PCR POSITIVE (Negative)
--- NOTE | 2024-02-04 12:34 | P.PNIM_ITS ---
Subjective Subjective Date of Service: 02/04/24 Interval History: arm cellulitis Review of Systems improving still has hand and arm erythema and some swellin no fever Physical Exam 2 Vital Signs: Vital Signs: Last Vital Signs Temp 97.6 F 02/04/24 11:37 Pulse 74 02/04/24 11:37 Resp 18 02/04/24 11:37 BP 151/73 H 02/04/24 11:37 Pulse Ox 100 02/04/24 11:37 O2 Del Method Room Air 02/04/24 11:37 BMI result Body Mass Index 23.6 Appearance: Alert.? Oriented X3.? cvs: rrr, [id number]. res: clear to auscultation ,no rhonchii or wheezing abd: no rebound or guarding ,nt, bs present. ext pulses present , no cyanosis . right hand and forearm erythema /pain somewhat improving neuro: axo3 , nonfocal. Objective Data Active Medications Acetaminophen (Acetaminophen 325 Mg Tablet) 650 mg PO Q6H PRN PRN Reason: Pain, Mild 1-3,fever,headache Last Admin: 02/04/24 06:48 Dose: 650 mg Documented By: STEPHEN Albuterol Sulfate (Albuterol Sulfate 90 Mcg 8 Gm Inhaler) 1 puff INHALE Q6H PRN PRN Reason: Shortness Of Breath Or Wheezing Calcium Carbonate (Calcium Carbonate 750 Mg Tab.Chew) 750 mg PO Q4H PRN PRN Reason: Heartburn Calcium Carbonate (Calcium Oyster Shell Elemental 500 Mg Tablet) 500 mg PO DAILY [facility] Last Admin: 02/04/24 08:59 Dose: 500 mg Documented By: ELMIRA Cyanocobalamin (Cyanocobalamin (Vitamin B-12) 1,000 Mcg Tablet) 1,000 mcg PO DAILY [facility] Last Admin: 02/04/24 08:58 Dose: 1,000 mcg Documented By: ELMIRA Docusate Sodium (Docusate Sodium 100 Mg Capsule) 100 mg PO BID [facility] Last Admin: 02/04/24 08:59 Dose: 100 mg Documented By: ELMIRA Duloxetine HCl (Duloxetine Hcl 60 Mg Capsule.Dr) 120 mg PO BEDTIME [facility] Enoxaparin Sodium (Enoxaparin Sodium 40 Mg/0.4 Ml Syringe) 40 mg SUBCUT Q24H [facility] Last Admin: 02/03/24 20:12 Dose: 40 mg Documented By: STEPHEN Fluticasone Propionate (Fluticasone Propionate 250 Mcg Blst.W.Dev) 2 puff INHALE DAILY [facility] Last Admin: 02/04/24 07:49 Dose: 2 puff Documented By: ROBIN Fluticasone Propionate (Fluticasone Propionate Nasal 16 Gm [place]) 1 spray NOSTRIL-B DAILY [facility] Last Admin: 02/04/24 09:24 Dose: 1 spray Documented By: ELMIRA Folic Acid (Folic Acid 1 Mg Tablet) 1 mg PO DAILY [facility] Last Admin: 02/04/24 08:59 Dose: 1 mg Documented By: ELMIRA Gabapentin (Gabapentin 300 Mg Capsule) 300 mg PO Q3H [facility] Last Admin: 02/04/24 09:00 Dose: 300 mg Documented By: ELMIRA Vancomycin HCl 1,500 mg/ (Sodium Chloride) 500 mls @ 333.333 mls/hr IV Q12H [facility] Last Infusion: 02/04/24 08:11 Dose: Infused Documented By: ELMIRA Lidocaine (Lidocaine 4 % Patch Adh..Patch) 2 patch TRANSDERMA DAILY [facility] Last Admin: 02/04/24 09:00 Dose: 2 patch Documented By: ELMIRA Loratadine (Loratadine 10 Mg Tablet) 10 mg PO DAILY [facility] Last Admin: 02/04/24 09:00 Dose: 10 mg Documented By: ELMIRA Lorazepam (Lorazepam 1 Mg Tablet) 1 mg PO Q3H [facility] Last Admin: 02/04/24 08:59 Dose: 1 mg Documented By: ELMIRA Magnesium Hydroxide (Milk Of Magnesia 30 Ml Oral.Susp) 30 ml PO DAILY PRN PRN Reason: Constipation Melatonin (Melatonin 3 Mg Tablet) 6 mg PO BEDTIME PRN PRN Reason: Insomnia Methylphenidate HCl (Methylphenidate Hcl 10 Mg Tablet) 20 mg PO QID [facility] Last Admin: 02/04/24 09:00 Dose: 20 mg Documented By: ELMIRA Montelukast Sodium (Montelukast Sodium 10 Mg Tablet) 10 mg PO DAILY [facility] Last Admin: 02/04/24 08:58 Dose: 10 mg Documented By: ELMIRA Multivitamins/Vitamin C (Multivitamin Tablet) 1 tab PO DAILY [facility] Last Admin: 02/04/24 09:00 Dose: 1 tab Documented By: ELMIRA Omeprazole (Omeprazole 40 Mg Capsule.Dr) 40 mg PO BID [facility] Last Admin: 02/04/24 08:59 Dose: 40 mg Documented By: ELMIRA Pharmacy Consult (Consult Rx Vancomycin Dosing) 1 each MISCELLANE DAILY PRN PRN Reason: Consult order Polyethylene Glycol (Polyethylene Glycol 3350 17 Gm Powd.Pack) 17 gm PO DAILY [facility] Last Admin: 02/04/24 09:00 Dose: 17 gm Documented By: ELMIRA Risperidone (Risperidone 1 Mg Tablet) 1 mg PO BEDTIME PRN PRN Reason: Anxiety Simethicone (Simethicone 80 Mg Tab.Chew) 160 mg PO BID [facility] Last Admin: 02/04/24 09:00 Dose: 160 mg Documented By: ELMIRA Sodium Chloride (0.9 % Sodium Chloride Flush 3 Ml Syringe) 3 ml IVFLUSH QSHIFT [facility] Last Admin: 02/04/24 08:56 Dose: 3 ml Documented By: ELMIRA Vitamin D (Cholecalciferol (Vitamin D3) 25 Mcg Tablet) 50 mcg PO DAILY [facility] Last Admin: 02/04/24 08:59 Dose: 50 mcg Documented By: ELMIRA Labs 02/03/24 04:20 02/04/24 07:07 Labs: Laboratory Results - last 24 hr 02/03/24 02/03/24 02/04/24 17:00 18:15 07:07 Hold Purple Top SEE NOTE SEE NOTE Estim Creat Clear Calc 77.6 Estimated GFR > 60 Nasal Screen MRSA (PCR) Nasal S. aureus Screen Nasal MRSA/S.aureus Interp Random Vancomycin 7.0 L Urine Opiates Screen Ur Buprenorphine Scrn Ur Oxycodone Screen Urine Methadone Screen Urine Fentanyl Screen Ur Barbiturates Screen Ur Phencyclidine Scrn Ur Amphetamines Screen U Benzodiazepines Scrn Urine Cocaine Screen U Marijuana (THC) Screen 02/04/24 02/04/24 09:30 10:30 Hold Purple Top Estim Creat Clear Calc Estimated GFR Nasal Screen MRSA (PCR) NEGATIVE Nasal S. aureus Screen POSITIVE A Nasal MRSA/S.aureus Interp SEE NOTE Random Vancomycin Urine Opiates Screen Not Detected Ur Buprenorphine Scrn Not Detected Ur Oxycodone Screen Not Detected Urine Methadone Screen Not Detected Urine Fentanyl Screen Not Detected Ur Barbiturates Screen Not Detected Ur Phencyclidine Scrn Not Detected Ur Amphetamines Screen Not Detected U Benzodiazepines Scrn Not Detected Urine Cocaine Screen POSITIVE H U Marijuana (THC) Screen POSITIVE H Microbiology Microbiology Results: Microbiology 02/02/24 18:20 Blood Culture - Preliminary Blood - Venous No growth after 24 hours. 02/02/24 18:26 Blood Culture - Preliminary Blood - Venous No growth after 24 hours. Assessment and Plan (1) Cellulitis of right hand: Status: Acute Plan 53 y/o F pmhx hx of asthma (mild intermittent) , says also has MVP,anxiety, gastric bypass came with needle stick yesterday .her friend is ivdu, She was accidentally stuck in her right palm by the needle. Right arm cellulitis has somewhat improving -still has significant hand and arm swelling,compartments are soft,has pulses. ? History of MRSA leucocytosis ,elevated esr Normal lactic acid, blood cultures sent Does not meet sepsis. hiv and hepatitis profile pending Continue IV vancomycin asthma (mild intermittent) -continue home meds once reconcilled. anxiety/major depression: continue home meds once reconcilled dvt prophylax: s/c lovenox. ongoing need for stay considering significant arm cellulitis and and cellulitis with needlestick-need IV antibiotics blood cultures pending, further deterioration need id eval and surgery eval. Quality Stroke Does the patient have a stroke diagnosis?: No VTE Prior VTE?: No VTE Risk Level:: Medical - moderate - high VTE Device Contraindication: N/A - Device Ordered VTE Drug Contraindication: N/A - Med Ordered
[2024-02-04] MEDS: Doxycycline Hyclate 100 MG in 0.9 % Sodium Chloride 250 ML 166.67 MG IV (17:41)
--- NOTE | 2024-02-04 18:22 | P.DS_ITS ---
DS: Providers Provider Date of Service: 02/04/24 Date of admission: 02/02/24 18:40 Date of discharge: 02/04/24 Primary care physician: Venessa Garcia CNP Consults: 02/03/24 09:03 Consult to Infectious Diseases Routine Consulting Provider: [facility] [place] [facility] Reason for consultation: Needle stick iv du , cellulitis Has provider been notified: No Attending physician on discharge: Dave Hernandez Discharging clinician: Dave Hernandez DS: Diagnosis Discharge Diagnosis (1) Cellulitis of right hand: Status: Acute DS: Summary Hospital Course Hospital Course: HPI:53 y/o F pmhx hx of asthma (mild intermittent) , anxiety, gastric bypass came with needle stick yetserday .her friend is kelly, She was accidentally stuck in her right palm by the needle. Since then she has developed redness and swelling to the hand and has also developed redness streaking up her right arm to her armpit. She does not know if she has had a fever. she also report hx of mrsa bacteremia requiring iv vanco was in [facility]. Denies any new complaint of chest pain or shortness of breath or abdominal pain or fever or chills or nausea or vomiting or cough Denies any weakness or numbness. lab ,imaging reviewed: wbc 16.3 cmp fine crp 19.05 esr:17 lactic acid 0.9 blood culture pending XR/XR hand wrist RT IMPRESSION: Normal radiographs of the hand and wrist. in Ed -received iv vanco. requested admission hospital course: 53 y/o F pmhx hx of asthma (mild intermittent) , says also has MVP,anxiety, g astric bypass came with needle stick yesterday .her friend is kelly, She was accidentally stuck in her right palm by the needle. patient says needle stick 1 day before coming to hospital. admitted for Right arm cellulitis-found tohave leucocytosis ,normal esr,elevated crp,Normal lactic acid, blood cultures sent,Does not meet sepsis. Patient is started on IV vanco,hiv and hepatitis profile sent and pending. Urine drug screen was positive for cocaine and marijuana. With above supportive care with antibiotic patient seems to be improved significantly, range of motion is intact. Cellulitis area improved significantly. Leukocytosis improving, blood culture negative @ 24hours. Patient was seen by infectious disease recommended p.o. doxycycline 100 mg b.i.d. for 1 week. plan: complete po doxycycline 100 mg po bid for 1 week. follow up cbc ,hiv and hepatitis serologies with pcp outpatient. assessment and plan coordination time spent 40 minutes. Patient management discussed with the patient detail length she understand and in agreement with the above plan. Time Attestation Total time managing care of this patient today: 40 mintues. Discharge Coordination Time (in mins): 40 min Quality: Safe Use of Opioids Does Pt have an Active Cancer Diagnosis on the Problem List?: No Quality: Stroke Does the patient have a stroke diagnosis?: No Physical Exam Vital Signs: Vital Signs: Last Vital Signs Temp 97.5 F 02/04/24 15:21 Pulse 67 02/04/24 15:21 Resp 18 02/04/24 15:21 BP 128/75 02/04/24 15:21 Pulse Ox 100 02/04/24 15:21 O2 Del Method Room Air 02/04/24 15:21 BMI result Body Mass Index 23.6 Appearance: Alert.? Oriented X3.? cvs: rrr, [id number]. res: clear to auscultation ,no rhonchii or wheezing abd: no rebound or guarding ,nt, bs present. ext pulses present , no cyanosis . right hand and forearm erythema improving significantly , rom intact. neuro: axo3 , nonfocal. DS: Data Data Completed and Pending Labs on day of discharge: Laboratory Results - last 24 hr 02/03/24 02/04/24 02/04/24 18:15 07:07 09:30 Hold Purple Top SEE NOTE SEE NOTE Creatinine 0.67 Estim Creat Clear Calc 77.6 Estimated GFR > 60 Nasal Screen MRSA (PCR) Nasal S. aureus Screen Nasal MRSA/S.aureus Interp Urine Opiates Screen Not Detected Ur Buprenorphine Scrn Not Detected Ur Oxycodone Screen Not Detected Urine Methadone Screen Not Detected Urine Fentanyl Screen Not Detected Ur Barbiturates Screen Not Detected Ur Phencyclidine Scrn Not Detected Ur Amphetamines Screen Not Detected U Benzodiazepines Scrn Not Detected Urine Cocaine Screen POSITIVE H U Marijuana (THC) Screen POSITIVE H 02/04/24 10:30 Hold Purple Top Creatinine Estim Creat Clear Calc Estimated GFR Nasal Screen MRSA (PCR) NEGATIVE Nasal S. aureus Screen POSITIVE A Nasal MRSA/S.aureus Interp SEE NOTE Urine Opiates Screen Ur Buprenorphine Scrn Ur Oxycodone Screen Urine Methadone Screen Urine Fentanyl Screen Ur Barbiturates Screen Ur Phencyclidine Scrn Ur Amphetamines Screen U Benzodiazepines Scrn Urine Cocaine Screen U Marijuana (THC) Screen Preliminary micro results at discharge 02/02/24 18:20 Blood Culture - Preliminary Blood - Venous No growth after 24 hours. 02/02/24 18:26 Blood Culture - Preliminary Blood - Venous No growth after 24 hours. Imaging Chest x-ray: Radiologist's impression: ITS Impressions Hand/Wrist X-Ray 02/02/24 13:33 IMPRESSION: Normal radiographs of the hand and wrist. Electronically signed by: Sid Chapman MD 02/02/2024 02:26 PM [facility] Discharge Plan Discharge Anticipated Discharge Date/Time: 02/04/24 18:14 Patient Disposition: Home, Self-Care Discharge Diagnosis: cellulitis of right hand Referrals: Venessa Garcia, APPRENTICE COOK [Primary Care Provider] - 1 Week Discharge Medications: New doxycycline hyclate 100 mg capsule 100 mg PO DAILY Qty: 14 0RF Continued lidocaine 5 % adhesive patch,medicated 2 patch topical DAILY Rx Instructions: leave on most painful area for up to 12 hrs polyethylene glycol 3350 17 gram Powder In Packet 17 g PO DAILY simethicone 180 mg Capsule 180 mg PO BID Rx Instructions: after meals acetaminophen 500 mg Tablet 500 mg PO Q3H PRN (Reason: Pain (Scale Score 1-3)) vitamin B complex Tablet 1 tab PO DAILY folic acid 1 mg Tablet 1 mg PO DAILY cyanocobalamin (vitamin B-12) 1,000 mcg Tablet, Sublingual 1,000 mcg SUBLINGUAL DAILY calcium citrate 250 mg calcium Tablet 250 mg PO DAILY cholecalciferol (vitamin D3) [Vitamin D3] 50 mcg (2,000 unit) Tablet 50 mcg PO DAILY risperidone 1 mg tablet 1 mg PO BEDTIME PRN (Reason: Anxiety) montelukast 10 mg tablet 10 mg PO DAILY gabapentin 300 mg capsule 300 mg PO Q3H lorazepam 2 mg tablet 1 mg PO Q3H methylphenidate HCl 20 mg tablet 20 mg PO QID albuterol sulfate 90 mcg/actuation HFA aerosol inhaler 1 puff inhalation Q6H PRN (Reason: Shortness Of Breath Or Wheezing) loratadine 10 mg tablet 10 mg PO DAILY fluticasone propionate [Flovent HFA] 220 mcg/actuation HFA aerosol inhaler 2 puff inhalation DAILY duloxetine 60 mg capsule,delayed release(DR/EC) 60 mg PO BID omeprazole 20 mg capsule,delayed release(DR/EC) 40 mg PO BID fluticasone propionate 50 mcg/actuation spray,suspension 1 spray intranasal DAILY multivitamin Tablet 1 tab PO DAILY Qty: 30 1RF Discharge Orders: Discharge Order (Routine); Ordered 02/04/24 Ordered By: Dave Hernandez Diet: Advance to usual diet Activity on Discharge: As tolerated Stand Alone Forms: Patient Portal Discharge page Print Language: [place] Care Plan Goals: Patient was admitted for Right arm cellulitis which started after 1 day of poss ible needlestick-started on antibiotics ,seems improving ,blood culture neg sofar . hiv and hepatitis serologies pending. hand and wrist xray-Normal radiographs of the hand and wrist. patient will complete po doxycycline 100 mg po bid for 1 week. follow up cbc ,hiv and hepatitis serologies with pcp outpatient. Health Concerns: as above. Plan of Treatment: as above. Assessment: as above.
[2024-02-04] MEDS: DULoxetine HCl 60 MG CAPSULE.DR 120 MG PO (20:08)
--- NOTE | 2024-02-05 00:39 | W.PM.IDCN ---
History of Present Illness Data of Consult Service Date: 02/04/24 Requesting physician: Dave Hernandez Primary Care Provider: Venessa Garcia CNP HPI Reason for consult: right hand and arm cellulitis She presents with redness right palm after needle stick. She has redness palm and reported redness up arm also. Now this has resolved. She had incident two days ago,02/01. She has WBC 50598 on admission. Review of Systems Review of Systems: Yes all other systems are reviewed and are negative [facility] Past Medical History Medical History Chronic constipation Urinary incontinence Raynaud disease PTSD (post-traumatic stress disorder) Primary hemochromatosis Polypharmacy Migraine Major depression Lactose intolerance Insomnia Gastro-esophageal reflux Fibromyalgia Elevated blood pressure reading Chronic pain syndrome Chronic diarrhea Cerebellar degeneration Asthma Anxiety disorder Anemia Allergic rhinitis Family History Family history: reviewed and not pertinent Surgical History Surgical History S/P gastric bypass Social History Social History Household Members: Other Household Members Other:: best friends dad Housing: House Do you presently have visiting nurse or other home services: No (for room mate) Patient Tobacco Use Status: Current everyday Tobacco user Tobacco use type: Cigarette e-Cigarette/Vaping Use: Currently Using Second Hand Smoke Exposure: No Substance Use Type: Marijuana and Caffiene service: No Meds Allergies Allergy/AdvReac Type Severity Reaction Status Date / Time hydromorphone [From DILAUDID] Allergy Severe UNKNOWN Verified 02/02/24 13:38 Sulfa (Sulfonamide Allergy Severe ANAPHYLAXIS Verified 02/02/24 13:38 Antibiotics) [SULFA (SULFONAMIDE ANTIBIOTICS)] gluten Allergy Unknown Verified 02/02/24 13:38 inverted sugar Allergy Vomiting Verified 02/02/24 13:38 lactose Allergy Unknown Verified 02/02/24 13:38 sulfa Allergy Unknown anaphylaxis Uncoded 02/02/24 13:38 Home Medications ?Medication ?Instructions ?Recorded ?Confirmed ?Last Taken ?Type albuterol sulfate 90 mcg/actuation 1 puff inhalation Q6H PRN 12/07/22 02/02/24 02/02/24 History aerosol inhaler Shortness Of Breath Or Wheezing duloxetine 60 mg capsule,delayed 60 mg PO BID 12/07/22 02/02/24 02/02/24 History release fluticasone propionate 220 2 puff inhalation DAILY 12/07/22 02/02/24 02/02/24 History mcg/actuation HFA aerosol inhaler (Flovent HFA) fluticasone propionate 50 1 spray intranasal DAILY 12/07/22 02/02/24 02/02/24 History mcg/actuation nasal spray,suspension gabapentin 300 mg capsule 300 mg PO Q3H 12/07/22 02/02/24 02/02/24 History loratadine 10 mg tablet 10 mg PO DAILY 12/07/22 02/02/24 02/02/24 History lorazepam 2 mg tablet 1 mg PO Q3H 12/07/22 02/02/24 02/02/24 History methylphenidate HCl 20 mg tablet 20 mg PO QID 12/07/22 02/02/24 02/02/24 History montelukast 10 mg tablet 10 mg PO DAILY 12/07/22 02/02/24 02/02/24 History omeprazole 20 mg capsule,delayed 40 mg PO BID 12/07/22 02/02/24 02/02/24 History release risperidone 1 mg tablet 1 mg PO BEDTIME PRN Anxiety 12/07/22 02/02/24 02/02/24 History acetaminophen 500 mg tablet 500 mg PO Q3H PRN Pain (Scale 02/02/24 02/02/24 02/02/24 History Score 1-3) calcium citrate 250 mg PO DAILY 02/02/24 02/02/24 02/02/24 History cholecalciferol (vitamin D3) 50 50 mcg PO DAILY 02/02/24 02/02/24 02/02/24 History mcg (2,000 unit) tablet (Vitamin D3) cyanocobalamin (vitamin B-12) 1,000 mcg sublingual DAILY 02/02/24 02/02/24 02/02/24 History 1,000 mcg sublingual tablet folic acid 1 mg tablet 1 mg PO DAILY 02/02/24 02/02/24 02/02/24 History lidocaine 5 % topical patch 2 patch topical DAILY 02/02/24 02/02/24 02/02/24 History polyethylene glycol 3350 17 gram 17 g PO DAILY 02/02/24 02/02/2402/01/24 History oral powder packet simethicone 180 mg capsule 180 mg PO BID 02/02/24 02/02/24 02/02/24 History vitamin B complex 1 tab PO DAILY 02/02/24 02/02/24 02/02/24 History Physical Exam Vital Signs: Vital Signs: Last Vital Signs Temp 97.8 F 02/04/24 19:26 Pulse 63 02/04/24 19:26 Resp 18 02/04/24 19:26 BP 138/71 02/04/24 19:26 Pulse Ox 100 02/04/24 19:26 O2 Del Method Room Air 02/04/24 19:26 BMI result Body Mass Index 23.6 Const: General: cooperative HEENT: Head: Yes normal to inspection Face and sinus: Yes normal facial exam Mouth: Normal oral and palatal mucosa present Teeth and gingiva: dentition normal Eyes: General: appearance normal, both eyes and all related structures Pupils: Equal, round and reactive pupils present Resp: Effort & Inspection: normal respiratory effort Cardio: Rate: regular rate Rhythm: regular rhythm GI: Palpation (GI): Soft to palpation and nontender : General: Yes no CVA tenderness Back/Spine/Pelvis: Back: no CVA tenderness Skin: General skin exam: no rashes or lesions noted Neuro: General: moves all extremities Cranial nerves: Yes Equal, round and reactive pupils present Extrem: General: Yes normal to inspection Psych: Appearance: grossly normal Results Labs 02/03/24 04:20 02/04/24 07:07 Labs: BMP 02/04/24 07:07 Creatinine 0.67 Microbiology Microbiology Results: Microbiology 02/02/24 18:26 Blood - Venous Blood Culture - Preliminary No growth after 48 hours. 02/02/24 18:20 Blood - Venous Blood Culture - Preliminary No growth after 48 hours. Assessment and Plan (1) Cellulitis of right hand: Status: Acute Plan Cellulitis palm and upper extremity completely resolved and no axillary swelling. Blood cultures negative. Clindamycin and Doxycycline for a week. Too late for PEP to be effective in HIV prevention but would check HIV and Hepatitis C now and in six weeks and three and six months.
[2024-02-05 04:23] LABS: HBS Num1 198.09 mIU/mL (0-7.99); HBc Num1 0.07 S/CO (0.00-0.79); HBsAGNum1 0.35 S/CO (0.00-0.99); HIV AB/AG Nonreactive (Nonreactive); HIV Num 1 0.07 S/CO (0.00-0.99); Hepatitis A Antibody IgM 0.13 Index (0-0.79); Hepatitis B Core Antibody Nonreactive (Nonreactive); Hepatitis B Surface Antigen Negative (Negative); ~HepC Num1 0.11 S/CO (0.00-0.79); ~Hepatitis A Antibody IgM Nonreactive (Nonreactive); ~Hepatitis B Surface Antibody REACTIVE (Nonreactive); ~Hepatitis C Antibody Nonreactive (Nonreactive)
== END 2024-02-04 20:23 | disposition home or self-care (01) | DRG 603 ==
LOC: HO.ED 18:31 → HO.EDOVER 18:44 → HO.S3 02-03 07:47
PROVIDERS: Physician Assistant Medical; Admitting Provider Internal Medicine; Emergency Provider Emergency Medicine; PCP Nurse Practitioner Family; Visit Provider Internal Medicine
DX: L03.113 Cellulitis of right upper limb (principal); F41.9 Anxiety disorder, unspecified; F32.9 Major depressive disorder, single episode, unspecified; J45.20 Mild intermittent asthma, uncomplicated; Z98.84 Bariatric surgery status; Z79.51 Long term (current) use of inhaled steroids; Z79.899 Other long term (current) drug therapy
CPT/HCPCS: 36415; 73110; 73130; 80048; 80053; 80202; 80307; 82565; 82947; 83605; 83735; 85025; 85027; 85652; 86140; 86704; 86706; 86709; 86803; 87040; 87340; 87389; 87640; 87641; 94640; 99221; 99285; J1650; J3370; J3371

== ENCOUNTER → 2024-02-02 18:40 | Outpatient (BNV) | payer OTHER, SELFPAY | PROVIDERS: Admitting Provider Internal Medicine; Emergency Provider Emergency Medicine; PCP Nurse Practitioner Family; Visit Provider Internal Medicine | DX: L03.113 Cellulitis of right upper limb (principal) | CPT/HCPCS: 99239; 99499 ==

== ENCOUNTER → 2024-02-02 18:40 | Outpatient (BNV) | payer OTHER, SELFPAY | PROVIDERS: Admitting Provider Internal Medicine; Emergency Provider Emergency Medicine; PCP Nurse Practitioner Family; Visit Provider Internal Medicine | DX: L03.113 Cellulitis of right upper limb (principal) | CPT/HCPCS: 99222 ==

== ENCOUNTER 2024-02-29 12:20 | Outpatient (REF) | payer OTHER, SELFPAY ==
--- OUTSIDE RECORDS SUMMARY | 2024-02-29 15:38 | XMS_ITS | Clinical Summary ---
Author Organization [facility] Address [address] [place] [address] Care Team Providers Care Legal Practice Manager Name Role Phone Danyel Smith MD Primary Care Provider Unava ilable Allergies Active Allergy Reactions Criticality Noted Date Comments Hydromorphone 04/07/2015 Sulfa Antibiotics Itching High 11/19/2014 Medications Medication Sig Dispensed Refills Start Date End Date Status tolterodine (DETROL LA) 2 MG 24 hr capsule Take 2 mg by mouth 3 (three) times a day. 0 Active Acetaminophen (TYLENOL 8 HOUR PO) Take by mouth every 4 (four) hours. 0 Active Loratadine 10 MG CAPS Take by mouth. 0 Active duloxetine (CYMBALTA) DR capsule 60 mg Take 60 mg by mouth 2 (two) times a day. 0 Active LORazepam (ATIVAN) 2 MG tablet Take 2 mg by mouth every 6 (six) hours as needed. 0 Active Methylphenidate HCl 20 MG JENNIFER Take by mouth 4 (four) times a day. 0 Active risperiDONE (RISPERDAL) 1 MG tablet Take 1 mg by mouth 2 (two) times a day. 0 Active atomoxetine (STRATTERA) 60 MG capsule Take 40 mg by mouth 2 (two) times a day. 0 Active traZODone (DESYREL) 100 MG tablet Take 100 mg by mouth every night at bedtime. 0 Active montelukast (SINGULAIR) 10 MG tablet Take 10 mg by mouth every night at bedtime. 0 Active mometasone (NASONEX) 50 MCG/ACT nasal spray spray or apply 2 sprays inside Nose daily. 0 Active albuterol (PROVENTIL HFA;VENTOLIN HFA) 108 (90 BASE) MCG/ACT inhaler Inhale 2 puffs into the lungs every 6 (six) hours as needed for wheezing. 0 Active fluconazole (DIFLUCAN) 150 MG tablet Take 150 mg by mouth once. monthly 0 Active B Complex Vitamins (VITAMIN-B COMPLEX PO) Take by mouth. 0 Active Vitamin D, Cholecalciferol, 1000 UNITS TABS Take by mouth. 0 Active CALCIUM CITRATE PO Take by mouth. 0 Ac tive Multiple Vitamins-Minerals (MULTI-VITAMIN GUMMIES) CHEW Chew by mouth. 0 Active vitamin C (ASCORBIC ACID) 500 MG tablet Take 500 mg by mouth daily. 0 Active FOLIC ACID PO Take by mouth. 0 Active Cyanocobalamin (VITAMIN B-12) [address] under the tongue. 0 Active gabapentin (NEURONTIN) 300 MG capsule Take 300 mg by mouth 3 (three) times a day. Pt takes 2 tab in AM, 2 at dinner, and 3 QHS 0 Active Iron-Vitamin C (VITRON-C) 65-125 MG TABS Take 1 tablet by mouth 2 (two) times a day. 60 tablet 2 09/28/2015 Active Misc Natural Products (FIBER 7) POWD Take by mouth. 0 Active chlorpheniramine (CHLOR-TRIMETON) 2 MG/5ML syrup Take 2 mg by mouth every 4 (four) hours as needed for allergies. 0 Active polyethylene glycol (MIRALAX) packetIndications:Iro n deficiency Take 17 g by mouth daily. 28 each 3 12/21/2015 Active Active Problems Problem Noted Date Diagnosed Date Asthma 08/28/2015 Depression 08/28/2015 Fibromyalgia 08/28/2015 Gastroesophageal reflux disease 08/28/2015 Overweight 08/28/2015 Family history of hemochromatosis 08/28/2015 Raynaud's disease 08/28/2015 Iron deficiency 04/07/2015 Decreased leukocytes 04/07/2015 Blood platelet disorder 04/07/2015 Social History Tobacco Use Types Packs/Day Years Used Date Smoking Tobacco: Never Smokeless Tobacco: Current Sex and Gender Information Value Date Recorded Sex Assigned at Not on file Gender Identity Not on file Sexual Orientation Not on file Last Filed Vital Signs Vital Sign Reading Time Taken Comments Blood Pressure 121/70 10/27/2015 4:04 PM EDT Pulse 79 10/27/2015 4:04 PM EDT Temperature 36.7 ??C (98 ??F) 10/27/2015 4:04 PM EDT Respiratory Rate 16 10/27/2015 4:04 PM EDT Oxygen Saturation 100% 10/27/2015 4:04 PM EDT Inhaled Oxygen Concentration - - Weight 62.6 kg (138 lb) 10/20/2015 12:50 PM EDT Height 162.6 cm (5' 4 ) 09/17/2015 2:43 PM EDT Body Mass Index 23.69 09/17/2015 2:43 PM EDT Plan of Treatment Health Maintenance Due Date Last Done Comments Hepatitis B Vaccines (1 of 3 - 3-dose series) 1971 Hepatitis C Screening 1971 COVID-19 Vaccine (#1) 06/07/1972 Depression Screening 1983 Preventative Health Evaluation 12/08/1989 DTap / Tdap / Td (1 - Tdap) 12/08/1990 Cervical Cancer Screening (P ap Smear) 12/08/1992 Colon Cancer Screening (Colonoscopy) 12/08/2016 Breast Cancer Screening (Mammogram) 12/08/2021 Shingrix-Zoster Vaccine (1 of 2) 12/08/2021 Influenza Vaccine (#1) 2023 Pneumococcal Vaccine Aged Out No long er eligible based on patient's age to complete this topic RSV Ped < 20 months Aged Out No longe r eligible based on patient's age to complete this topic Advance Directives For more information, please contact: [phone] Documents on File Type Date Recorded Patient Shelter Director Expl anation Advance Directive and Living Will 10/27/2015 4:31 PM Care Teams Legal Practice Manager Relationship Specialty Start Date End Date Danyel Smith MD PCP - General Family Medicine 08/18/14
[2024-02-29 18:25] LABS: Influenza A PCR POSITIVE (Negative); Influenza B PCR NEGATIVE (Negative); Resp Syncy Virus RNA Qual PCR NEGATIVE (Negative); SARS COV2 PCR INHOUSE NEGATIVE (Negative)
== END 2024-02-29 12:21 | disposition home or self-care (01) ==
LOC: HO.LAB 12:20
PROVIDERS: PCP Nurse Practitioner Family; Visit Provider Physician Assistant
DX: J06.9 Acute upper respiratory infection, unspecified (principal)
CPT/HCPCS: 0241U; 99202

== ENCOUNTER 2024-02-29 12:20 | Outpatient (AMB) | payer OTHER, SELFPAY ==
[2024-02-29 12:48] VITALS: BP 138/90; PULSE 71; TEMP 36.6; O2SAT 96
--- NOTE | 2024-02-29 12:48 | AM.OFFWIN_ITS ---
Intake Vital Signs 02/29/24 12:48 Weight 131 lb 6 oz BP 138/90 H Blood Pressure Location Lt brachial Position Sitting Pulse 71 Pulse Source Pulse Oximeter Temp 98 F Temp Source Oral Pulse Oximetry (%) 96 Oxygen Delivery Method Room Air Intake Visit Reasons: EP upper respiratory symptoms Intake Note: Patient here for chest congestion that has been present for 1 week. Patient Tobacco Use Status: Current everyday Tobacco user Allergies hydromorphone [From DILAUDID] Allergy (Severe, Verified 02/29/24 12:54) UNKNOWN Sulfa (Sulfonamide Antibiotics) [SULFA (SULFONAMIDE ANTIBIOTICS)] Allergy (Severe, Verified 02/29/24 12:54) ANAPHYLAXIS gluten Allergy (Verified 02/29/24 12:54) Unknown inverted sugar Allergy (Verified 02/29/24 12:54) Vomiting lactose Allergy (Verified 02/29/24 12:54) Unknown sulfa Allergy (Unknown, Uncoded 02/29/24 12:54) anaphylaxis Do you need a note to return to daycare/school/sports/work: No HPI HPI Comments History of Present Illness Details History - The patient is a 53-year-old female pr esenting with respiratory symptoms and sinus issues x 1wk. - Hospitalized for cellulitis with hand involvement previously, treated successfully with antibiotics - Medical history includes asthma, COPD, and a past MRSA infection. - Experiences chronic sinusitis and migr aines, particularly affected by environmental changes. - Reports recent night chills, but witho ut significant fever. - Uses Flovent, montelukast, and rescue inhalers for respiratory management. - Challenges with maintaining vitamin in take post-gastric bypass surgery due to cost issues. - Noted ear pressure and popping, with o ccasional nasal bleeding history. - Living environment involves exposure t o illness through a sick roommate. Physical Exam General: Cooperative, healthy appearing, comfortable and no acute distress Orientation/consciousness: Patient oriented x3 Limitations: No limitations Head: Normal to inspection Ears: Hearing grossly normal bilaterally, external ears normal and TM's normal bilaterally Nose: Normal external nose present, Normal nares present and No nasal discharge present Face and sinus: Normal facial exam and Yes sinuses nontender Mouth: Normal oral and palatal mucosa present and moist mucous membranes Throat: Yes tonsils normal, Yes uvula midline. Posterior oropharynx erythema, no exudates Eyes: Appearance normal, both eyes and all related structures Neck: Normal visual inspection Respiratory: Clear to auscultation bilaterally. Normal respiratory effort, able to speak in complete sentences, Actively coughing, no respiratory distress, not tachypneic, no tripod positioning and no use of accessory muscles Cardiovascular: Regular rate and rhythm. Normal S1 and S2 Skin: No rashes or lesions noted Neuro: Patient oriented x3 Extremities: Normal to inspection and Yes no clubbing, cyanosis or edema PFSH Medical History Chronic constipation Urinary incontinence Raynaud disease PTSD (post-traumatic stress disorder) Primary hemochromatosis Polypharmacy Migraine Major depression Lactose intolerance Insomnia Gastro-esophageal reflux Fibromyalgia Elevated blood pressure reading Chronic pain syndrome Chronic diarrhea Cerebellar degeneration Asthma Anxiety disorder Anemia Allergic rhinitis Surgical History S/P gastric bypass Social History Household Members: Other Household Members Other:: best friends dad Housing: House Do you presently have visiting nurse or other home services: No (for room mate) Patient Tobacco Use Status: Current everyday Tobacco user Tobacco use type: Cigarette e-Cigarette/Vaping Use: Currently Using Second Hand Smoke Exposure: No Substance Use Type: Marijuana and Caffiene service: No Review of Systems Const All systems reviewed & are unremarkable except as noted in HPI and below Physical Exam Vital Signs: Last Vital Signs Temp 98 F 02/29/24 12:48 Pulse 114 H 02/29/24 12:48 BP 138/90 H 02/29/24 12:48 Pulse Ox 96 02/29/24 12:48 Oxygen Delivery Method Room Air 02/29/24 12:48 Assessment & Plan Assessment & Plan (1) URI, acute: Code(s): J06.9 - Acute upper respiratory infection, unspecified Plan: I have ordered influenza, COVID-19, and RSV tests to determine the current etiology of the patient's respiratory symptoms. The patient should continue using her regular asthma and COPD management regimen including montelukast, Flovent, and a rescue inhaler as required. I have prescribed fluticasone nasal spray and instructed the patient on its use to improve sinus congestion while advising the use of saline spray to counteract dryness. The patient should monitor for signs of worsening infection, especially given her history with MRSA and cellulitis. Current management involves no additional antibiotics, directing focus towards symptom monitoring, and environmental health. Patient was informed and verbally consented to the use of an ambient scribe for clinic note documentation during this visit Orders: Orders SARS-CoV2/FLU/RSV Today J06.9 - Acute upper respiratory infection, unspecified Medications: New fluticasone propionate 50 mcg/actuation administer into each nostril 1 spray intranasal Q12H 16 grams 0RF Coding Level of Care Code New Pt Level 3 (70757) Diagnoses URI, acute J06.9
== END 2024-02-29 13:24 | disposition home or self-care (01) ==
PROVIDERS: PCP Nurse Practitioner Family; Visit Provider Physician Assistant
DX: J06.9 Acute upper respiratory infection, unspecified (principal)